=== PATIENT | male | born 1985 | race African-American/Black ===

== ENCOUNTER 2016-10-21 08:44 | Emergency (ER) | payer BC, MEDICAID, OTHER ==
[2016-10-21] MEDS ORDERED: ONDANSETRON 4 MG/2 ML VIAL IVP STA (08:55)
[2016-10-21] MEDS ORDERED: SODIUM CHLORIDE 0.9% 1,000 ML IV ONE (09:07)
[2016-10-21] MEDS ORDERED: ONDANSETRON 4 MG/2 ML VIAL ONE (09:13)
== END 2016-10-21 10:22 | disposition home or self-care (01) ==
DX: R11.2 Nausea with vomiting, unspecified (principal); R19.7 Diarrhea, unspecified; R42 Dizziness and giddiness

== ENCOUNTER 2017-07-10 00:13 | Emergency (ER) | payer SELFPAY ==
--- NOTE | 2017-07-10 00:47 | ED Physician Documentation ---
PD HPI SKIN - Stated complaint Stated Complaint: STOMACH WOUND - Chief complaint Chief Complaint: General - History obtained from History obtained from: Patient - History of Present Illness Timing - onset: How many weeks ago (several weeks-months of recurrent infection/ inflammation in the area (suprapubic), but he presents tonight due to concern of "opening" of the skin x past several days) Timing - details: Gradual onset Pain level now: 1 Location: Other (suprapubic) Recently seen: Not recently seen - Additional information Additional information: patient says he frequently gets ingrown hairs in suprapubic region, but is concerned regarding an opening in the skin in that area x several days. denies pain or fevers Review of Systems Constitutional: denies: Fever Skin: reports: Rash PD PAST MEDICAL HISTORY - Past Medical History Past Medical History: No Cardiovascular: None Respiratory: None Neuro: None Endocrine/Autoimmune: None GI: None : None HEENT: None Psych: None Musculoskeletal: None Derm: None - Past Surgical History Past Surgical History: No - Present Medications Home Medications: Ambulatory Orders Medication Instructions Recorded Confirmed Ondansetron Odt [Zofran] 4 mg TL Q6H PRN #10 tablet 10/21/16 Cephalexin [Keflex] 500 mg PO QID #27 capsule 07/10/17 - Allergies Allergies/Adverse Reactions: Allergies Allergy/AdvReac Type Severity Reaction Status Date / Time No Known Drug Allergies Allergy Verified 07/10/17 00:28 - Social History Does the pt smoke?: No Smoking Status: Never smoker Does the pt drink ETOH?: No Does the pt have substance abuse?: No - Immunizations Immunizations are current?: Yes - POLST Patient has POLST: No PD ED PE NORMAL - Vitals Vital signs reviewed: Yes - General General: Alert and oriented X 3, No acute distress PD ED PE EXPANDED - Abdomen Abdomen Visual: 1 - deformity (there is a defect in the skin, ulceration that is 5mm x 3-4 mm. no purluence, no discharge. there is no erythema although the surrounding skin is hyperpigmented and thick s/o scarring) Results - Vitals Vitals: Vital Signs - 24 hr 07/10/17 07/10/17 00:26 01:25 Temperature 36.4 C L 36.5 C Heart Rate 89 100 Respiratory 17 22 Rate Blood Pressure 153/101 H 138/76 H O2 Saturation 95 98 Oxygen O2 Source Room air PD MEDICAL DECISION MAKING - ED course Complexity details: considered differential, d/w patient Departure - Departure Disposition: 01 Home, Self Care Clinical Impression: Cellulitis Condition: Good Instructions: ED Infec Skin Cellulitis Follow-Up: [facility] [Provider Group] [facility] [Provider Group] Prescriptions: Cephalexin [Keflex] 500 mg PO QID #27 capsule Discharge Date/Time: 07/10/17 01:25
[2017-07-10] MEDS ORDERED: BACITRACIN OINT TOP STA (00:58)
[2017-07-10] MEDS ORDERED: cephALEXin 250 MG CAPSULE PO STA (01:07)
[2017-07-10] MEDS ORDERED: BACITRACIN OINT TOP ONE ×2 (01:13→01:24)
[2017-07-10] MEDS ORDERED: cephALEXin 250 MG CAPSULE PO ONE (01:23)
[2017-07-10 01:28] VITALS: BP 138/76
== END 2017-07-10 01:25 | disposition home or self-care (01) ==
LOC: ED 00:13
DX: L03.314 Cellulitis of groin (principal)
CPT/HCPCS: 99283; A9270

== ENCOUNTER 2017-10-01 22:54 | Outpatient (CLI) | payer MEDICAID | END 2017-10-01 22:55 | disposition critical access hospital (66) | LOC: EMS 22:54 | PROVIDERS: ATTEND Surgery | DX: R07.9 Chest pain, unspecified (principal) | CPT/HCPCS: A0425; A0429 ==

== ENCOUNTER 2017-10-01 23:12 | Emergency (ER) | payer MEDICAID ==
[2017-10-01 23:55] LABS: BASOPHILS % (AUTO) 0.6 %; EOSINOPHILS # (AUTO) 0.2 10^3/uL (0.0-0.7); EOSINOPHILS % (AUTO) 2.6 %; HGB - HEMOGLOBIN 13.4 g/dL (14.0-18.0); LYMPHOCYTES # (AUTO) 1.5 10^3/uL (1.5-3.5); LYMPHOCYTES % (AUTO) 18.9 %; MEAN CORPUSCULAR HEMOGLOBIN 26.8 pg (27.0-31.0); MEAN CORPUSCULAR HGB CONC 32.9 g/dL (32.0-36.0); MEAN CORPUSCULAR VOLUME 81.3 fL (80.0-94.0); MEAN PLATELET VOLUME 7.7 fL (7.4-11.4); MONOCYTES # (AUTO) 0.6 10^3/uL (0.0-1.0); MONOCYTES % (AUTO) 7.3 %; NEUTROPHILS # (AUTO) 5.7 10^3/uL (1.5-6.6); NEUTROPHILS % (AUTO) 70.6 %; PLT - PLATELET COUNT 242 10^3/uL (130-450); RED CELL DISTRIBUTION WIDTH 15.7 % (12.0-15.0)
[2017-10-02 00:02] LABS: ALBUMIN 3.3 g/dL (3.2-5.5); ALBUMIN/GLOBULIN RATIO 0.8 (1.0-2.2); BILIRUBIN,TOTAL 0.4 mg/dL (0.2-1.0); CALCIUM 8.9 mg/dL (8.5-10.3); CREATININE 1.1 mg/dL (0.6-1.2); TOTAL PROTEIN 7.2 g/dL (6.7-8.2)
--- NOTE | 2017-10-02 00:33 | ED Physician Documentation ---
PD HPI CHEST PAIN - Stated complaint Stated Complaint: CHEST PAIN - Chief complaint Chief Complaint: Cardiac - History obtained from History obtained from: Patient - History of Present Illness Timing - onset: How many days ago (3) Timing - onset during: Rest Timing - details: Now resolved, Intermittant, Waxing and waning Quality: Aching Location: Right chest Radiation: Back Improved by: Nothing Associated symptoms: Nausea. No: Shortness of air, Diaphoresis, Vomiting, General Weakness Similar symptoms before: No diagnosis Recently seen: Not recently seen - Additional information Additional information: Patient is a 31 year old obese male who is presenting to the emergency department for intermittent right sided chest pain. Patient states that it has been going on the last few days but decided tonight he should get checked out. patient denies any aggravating or alleviating factors. patient denies any early family history of cardiac disease or a history of blood clots. Review of Systems Constitutional: denies: Fever, Chills Eyes: reports: Reviewed and negative Ears: reports: Reviewed and negative Nose: reports: Reviewed and negative Throat: reports: Reviewed and negative Cardiac: reports: Chest pain / pressure. denies: Palpitations, Calf pain Respiratory: denies: Dyspnea, Cough, Wheezing GI: reports: Nausea. denies: Abdominal Pain, Vomiting, Constipation, Diarrhea : reports: Reviewed and negative Skin: reports: Reviewed and negative Musculoskeletal: reports: Back pain. denies: Extremity pain Neurologic: denies: Generalized weakness, Focal weakness, Altered mental status , Headache Psychiatric: reports: Reviewed and negative Immunocompromised: denies: Immunocompromised PD PAST MEDICAL HISTORY - Past Medical History Cardiovascular: None Respiratory: None Neuro: None Endocrine/Autoimmune: None GI: None : None HEENT: None Psych: None Musculoskeletal: None Derm: None - Past Surgical History Past Surgical History: No - Present Medications Home Medications: Ambulatory Orders Medication Instructions Recorded Confirmed No Known Home Medications [No 10/01/17 10/01/17 Known Home Medications] - Allergies Allergies/Adverse Reactions: Allergies Allergy/AdvReac Type Severity Reaction Status Date / Time No Known Drug Allergies Allergy Verified 10/01/17 23:17 - Social History Does the pt smoke?: No Smoking Status: Never smoker Does the pt drink ETOH?: No Does the pt have substance abuse?: No - Immunizations Immunizations are current?: Yes - POLST Patient has POLST: No PD ED PE NORMAL - Vitals Vital signs reviewed: Yes - General General: Alert and oriented X 3, No acute distress - HEENT HEENT: Atraumatic, PERRL, Moist mucous membranes - Neck Neck: Supple, no meningeal sign, No JVD - Cardiac Cardiac: RRR, No murmur - Respiratory Respiratory: No respiratory distress - Abdomen Abdomen: Soft - Derm Derm: Normal color, Warm and dry, No rash - Extremities Extremities: No deformity, No edema, No calf tenderness / cord - Neuro Neuro: Normal speech PD ED PE EXPANDED - Abdomen Abdomen: Other (obese). No: Tender to palpation, Rebound, Guarding Results - Vitals Vitals: Vital Signs - 24 hr 10/01/17 10/01/17 10/02/17 23:14 23:19 00:22 Temperature 36.6 C Heart Rate 86 70 Respiratory 18 12 Rate Blood Pressure 160/107 H 136/100 H Blood Pressure 160/107 H [Left] O2 Saturation 96 97 Oxygen O2 Source Room air - EKG (time done) 2318 Rate: Rate (enter#) (86) Rhythm: NSR [place]: Normal Intervals: Normal [place] QRS: Normal Ischemia: Normal ST segments Compare to prior EKG: Old EKG unavailable - Labs Labs: Laboratory Tests 10/01/17 10/01/17 10/01/17 23:40 23:40 23:40 WBC 8.0 RBC 5.00 Hgb 13.4 L Hct 40.7 L MCV 81.3 MCH 26.8 L MCHC 32.9 RDW 15.7 H Plt Count 242 MPV 7.7 Neut # 5.7 Lymph # 1.5 [place] # 0.6 Eos # 0.2 Baso # 0.0 Absolute Nucleated RBC 0.00 Nucleated RBC % 0.0 Sodium 137 Potassium 3.9 Chloride 103 Carbon Dioxide 23 Anion Gap 11.0 BUN 15 Creatinine 1.1 Estimated GFR (MDRD) 96 Glucose 103 H Calcium 8.9 Total Bilirubin 0.4 AST 31 ALT 40 Alkaline Phosphatase 63 Troponin I < 0.04 Total Protein 7.2 Albumin 3.3 Globulin 3.9 Albumin/Globulin Ratio 0.8 L Lipase 27 - Rads (name of study) chest x-ray Radiology: Final report received (normal) abd ultrasound Radiology: Final report received (fatty liver) PD MEDICAL DECISION MAKING - ED course Complexity details: reviewed old records, reviewed results, re-evaluated patient , considered differential, d/w patient ED course: Patient was seen and examined at bedside. ekg was performed and was within normal limits. labs were drawn and chest x-ray was performed which also showed no acute abnormalities. abdominal ultrasound was performed and showed only fatty liver. patient had a heart score of 1 and was stable for discharge with outpatient follow up. Departure - Departure Disposition: 01 Home, Self Care Clinical Impression: Atypical chest pain Condition: Good Instructions: ED Chest Pain NonCardiac Follow-Up: primary,care provider [Other] - As Needed Comments: Your diagnostics today showed no acute abnormalities. You chest pain is unlikely cardiac in nature. Your ultrasound did show a fatty liver so it is important that you work on changing your diet and exercising. You can take motrin or tylenol as needed for pain and follow up with your doctor for routine care. You may return to the emergency department at any time if necessary for new, worsening or uncontrollable symptoms.
--- NOTE | 2017-10-02 00:37 | XRAY Report ---
EXAM: CHEST RADIOGRAPHY EXAM DATE: 10/02/2017 12:08 AM. CLINICAL HISTORY: Right sided chest pain. COMPARISON: 10/21/2016. TECHNIQUE: 2 views. FINDINGS: Lungs/Pleura: No focal opacities evident. No pleural effusion. No pneumothorax. Normal volumes. Mediastinum: Heart and mediastinal contours are unremarkable. Other: None. IMPRESSION: Normal 2-view chest radiography. [facility] Referring Provider Line: [phone] SITE ID: [id number]
--- NOTE | 2017-10-02 01:03 | Ultrasound Preliminary Report ---
Exam: US ABDOMEN LIMITED IMPRESSION: 1. Fatty liver. 2. No evidence of cholelithiasis, cholecystitis or bile duct obstruction. [facility] SITE ID: [id number]
--- NOTE | 2017-10-02 01:04 | Ultrasound Report ---
EXAM: ABDOMEN ULTRASOUND LIMITED, RUQ EXAM DATE: 10/02/2017 12:53 AM. CLINICAL HISTORY: Right sided chest pain. COMPARISON: None. TECHNIQUE: Real-time scanning was performed with static images obtained. FINDINGS: Liver: Diffusely hyperechoic echotexture with no focal liver lesions. 18.5 cm. Main portal vein flow: Hepatopetal. Gallbladder: Contracted. No obvious gallstones, gallbladder wall thickening or pericholecystic fluid collections. Biliary System: CBD measures 5 mm. No intrahepatic or extrahepatic ductal dilatation. Other: No right hydronephrosis. The pancreas is nonvisualized. IMPRESSION: 1. Fatty liver. 2. No evidence of cholelithiasis, cholecystitis or bile duct obstruction. [facility] Referring Provider Line: [phone] SITE ID: [id number]
[2017-10-02 01:23] VITALS: BP 144/111
== END 2017-10-02 01:21 | disposition home or self-care (01) ==
LOC: EDUNIT# → ED 23:12
DX: R07.89 Other chest pain (principal); K76.0 Fatty (change of) liver, not elsewhere classified
CPT/HCPCS: 36415; 71046; 76705; 80053; 83690; 84484; 85025; 93005; 99283; 99284

== ENCOUNTER 2018-05-06 13:39 | Outpatient (CLI) | payer BC, MEDICAID ==
[2018-05-09 17:42] LABS: HIV AG/AB 4TH GEN NON-REACTIVE (NON-REACTIVE)
[2018-05-09 19:51] LABS: HEPATITIS C ANTIBODY NON-REACTIVE (NON-REACTIVE)
== END 2018-05-06 13:40 | disposition home or self-care (01) ==
LOC: LAB.N 13:39
PROVIDERS: ATTEND Physician Assistant Medical
DX: Z11.3 Encounter for screening for infections with a predominantly sexual mode of transmission (principal)
CPT/HCPCS: 36415; 81599; 86592; 86803; 87389; 87491; 87591

== ENCOUNTER 2020-02-27 08:54 | Emergency (ER) | payer MEDICAID ==
[2020-02-27 09:02] VITALS: BP 124/85
--- NOTE | 2020-02-27 09:35 | ED Physician Documentation ---
History of Present Illness - Stated complaint Stated Complaint: RETURN TO WORK NOTE - Chief complaint Chief Complaint: General - History obtained from History obtained from: Patient - History of Present Illness Timing: Today - Additonal information Additional information: 34-year-old male developed diarrhea yesterday morning for about 2 hours and had to call off work. He did go home he got some Pepto-Bismol and this resolved his symptoms. He states that he was asked to get a note to return to work. He states he is no longer feeling ill in any way he has not had fever chills fatigue cough or vomiting. His diarrhea is resolved. Review of Systems Constitutional: denies: Fever, Chills Eyes: denies: Loss of vision, Decreased vision Ears: denies: Ear pain Nose: denies: Rhinorrhea / runny nose, Congestion Throat: denies: Sore throat Cardiac: denies: Chest pain / pressure, Palpitations Respiratory: denies: Dyspnea, Cough GI: reports: Diarrhea (Resolved). denies: Abdominal Pain, Nausea, Vomiting : denies: Dysuria, Frequency Skin: denies: Rash Musculoskeletal: denies: Neck pain, Back pain, Extremity pain Neurologic: denies: Generalized weakness, Focal weakness, Numbness PD PAST MEDICAL HISTORY - Past Medical History Past Medical History: No Cardiovascular: None Respiratory: None Endocrine/Autoimmune: None GI: None : None HEENT: None Psych: None Musculoskeletal: None Derm: None - Past Surgical History Past Surgical History: No - Present Medications Home Medications: Ambulatory Orders Medication Instructions Recorded Confirmed No Known Home Medications 10/01/17 02/27/20 - Allergies Allergies/Adverse Reactions: Allergies Allergy/AdvReac Type Severity Reaction Status Date / Time No Known Drug Allergies Allergy Verified 02/27/20 08:58 - Social History Does the pt smoke?: No Smoking Status: Never smoker Does the pt drink ETOH?: No Does the pt have substance abuse?: No - Immunizations Immunizations are current?: Yes - POLST Patient has POLST: No PD ED PE NORMAL - Vitals Vital signs reviewed: Yes (Hypertensive mild) - General General: Alert and oriented X 3, No acute distress, Well developed/nourished - HEENT HEENT: Atraumatic, PERRL - Neck Neck: Supple, no meningeal sign, No bony TTP - Cardiac Cardiac: RRR, No murmur - Respiratory Respiratory: No respiratory distress, Clear bilaterally - Abdomen Abdomen: Soft, Non tender, Non distended, No organomegaly - Back Back: No CVA TTP, No spinal TTP - Derm Derm: Normal color, Warm and dry, No rash - Extremities Extremities: No deformity, No edema, No calf tenderness / cord - Neuro Neuro: Alert and oriented X 3, control system manager 2-12 intact, No motor deficit, No sensory deficit, Normal speech Eye Opening: Spontaneous Motor: Obeys Commands Verbal: Oriented GCS Score: 15 - Psych Psych: Normal mood, Normal affect Results - Vitals Vitals: Vital Signs - 24 hr 02/27/20 08:59 Temperature 36.1 C L Heart Rate 78 Respiratory 18 Rate Blood Pressure 124/85 H O2 Saturation 96 Oxygen O2 Source Room air PD MEDICAL DECISION MAKING - ED course Complexity details: reviewed results, considered differential, d/w patient ED course: 34-year-old male appears well today requires a note to return to work. Departure - Departure Disposition: 01 Home, Self Care Clinical Impression: Well adult health check Condition: Stable Instructions: ED Diet Vomiting Diarrhea Follow-Up: KAI ESQUIVEL MD [Primary Care Provider] - Forms: Activity restrictions
== END 2020-02-27 09:42 | disposition home or self-care (01) ==
LOC: ED 08:54
DX: R19.7 Diarrhea, unspecified (principal)
CPT/HCPCS: 99281; 99282

== ENCOUNTER 2020-07-24 08:00 | Outpatient (CLI) | payer MEDICAID | END 2020-07-24 23:59 | LOC: LAB.R 08:00 | PROVIDERS: ATTEND Family Medicine | DX: R11.10 Vomiting, unspecified (principal); Z20.828 Contact with and (suspected) exposure to other viral communicable diseases ==

== ENCOUNTER 2021-06-29 09:30 | Observation (INO) | payer MEDICAID ==
--- NOTE | 2021-06-29 09:59 | ED Physician Documentation ---
PD HPI SYNCOPE - Stated complaint Stated Complaint: LOSS OF CONSCIOUSNESS - Chief complaint Chief Complaint: Neuro - History obtained from History obtained from: Patient - History of Present Illness Timing - onset: Today Duration: Unknown Preceding symptoms: None Associated symptoms: None. No: Seizure, Incontinant of urine, Incontinant of stool, Headache, Vision changes, Chest pain, Palpitations, Diaphoresis, Dyspnea, Nausea / vomiting, Abdominal pain Contributing factors: None. No: Recent med change, Decreased PO intake, Noxious stimulae, Emotional upset, Just stood up, Exertion Injury occurred: Fell. No: Head injury, Neck injury, Bit tongue Pain level max: 0 Pain level now: 0 Similar symptoms before: Has not had sx before Recently seen: Not recently seen - Additional information Additional information: Patient is a 35-year-old male who presents to the emergency department with syncope today. He states that a similar event occurred yesterday. He states he does not know what happened. He was in his kitchen today and woke up on the floor. Does not remember feeling lightheaded, dizzy, palpitations. He states yesterday he woke up on the floor in his living room. He has not on any medications. Does not smoke or drink. No drug use. Unknown if there is a family history of syncope. No headache. No loss of bowel or bladder control. No tongue biting. PD PAST MEDICAL HISTORY - Past Medical History Cardiovascular: None Respiratory: None Endocrine/Autoimmune: None GI: None : None HEENT: None Psych: None Musculoskeletal: None Derm: None - Past Surgical History Past Surgical History: No - Present Medications Home Medications: Ambulatory Orders Medication Instructions Recorded Confirmed No Known Home Medications 10/01/17 06/29/21 - Allergies Allergies/Adverse Reactions: Allergies Allergy/AdvReac Type Severity Reaction Status Date / Time No Known Drug Allergies Allergy Verified 06/29/21 09:47 - Social History Does the pt smoke?: No Smoking Status: Never smoker Does the pt drink ETOH?: No Does the pt have substance abuse?: No - Immunizations Immunizations are current?: Yes - POLST Patient has POLST: No PD ED PE NORMAL - Vitals Vital signs reviewed: Yes - General General: Alert and oriented X 3, No acute distress, Well developed/nourished - HEENT HEENT: PERRL, Moist mucous membranes - Neck Neck: Supple, no meningeal sign - Cardiac Cardiac: RRR, No murmur, Strong equal pulses - Respiratory Respiratory: No respiratory distress, Clear bilaterally - Abdomen Abdomen: Soft, Non tender, Non distended - Derm Derm: Warm and dry, No rash - Extremities Extremities: No edema, No calf tenderness / cord - Neuro Neuro: Alert and oriented X 3 - Psych Psych: Normal mood, Normal affect Results - Vitals Vitals: Vital Signs - 24 hr 06/29/21 06/29/21 06/29/21 09:42 09:50 09:59 Temperature 36.8 C 36.6 C Heart Rate 71 78 Heart Rate [ 75 Sitting] Heart Rate [ 89 Standing] Heart Rate [ 74 Supine] Respiratory 15 17 Rate Blood Pressure 124/89 H 124/89 H Blood Pressure 136/90 H [Sitting] Blood Pressure 138/99 H [Standing] Blood Pressure 124/89 H [Supine] O2 Saturation 98 97 06/29/21 10:53 Temperature Heart Rate 68 Heart Rate [ Sitting] Heart Rate [ Standing] Heart Rate [ Supine] Respiratory 15 Rate Blood Pressure 129/92 H Blood Pressure [Sitting] Blood Pressure [Standing] Blood Pressure [Supine] O2 Saturation 98 Oxygen O2 Source Room air - EKG (time done) 1013 Rate: Rate (enter#) (80) Rhythm: NSR [place]: Normal Intervals: Normal [place] QRS: Normal Ischemia: Normal ST segments - Labs Labs: Laboratory Tests 06/29/21 06/29/21 06/29/21 10:05 10:05 10:05 WBC 5.7 RBC 5.82 Hgb 15.3 Hct 48.1 MCV 82.6 MCH 26.3 L MCHC 31.8 L RDW 15.8 H Plt Count 287 MPV 9.1 Neut # (Auto) 3.8 Lymph # (Auto) 1.3 L [place] # (Auto) 0.4 Eos # (Auto) 0.2 Baso # (Auto) 0.0 Absolute Nucleated RBC 0.00 Nucleated RBC % 0.0 Sodium 138 Potassium 3.9 Chloride 101 Carbon Dioxide 28 Anion Gap 9.0 BUN 13 Creatinine 1.0 Estimated GFR (MDRD) 104 Glucose 90 Calcium 9.2 Total Bilirubin 0.4 AST 21 ALT 20 Alkaline Phosphatase 62 Troponin I High Sens 2.9 Total Protein 8.1 Albumin 4.2 Globulin 3.9 Albumin/Globulin Ratio 1.1 Lipase 34 - Rads (name of study) cxr Radiology: Final report received, EMP read contemporaneously, See rad report (no acute disease) PD MEDICAL DECISION MAKING - ED course Complexity details: reviewed results, re-evaluated patient, considered differential, d/w patient, d/w bi consultant ED course: 35-year-old male with 2 episodes of syncope in the past 36 hours. Neither had a prodrome. Did not have any reported postictal period. No headache. No injuries. No chest pain. No palpitations. Patient is not orthostatic. No acute findings on EKG. Concern for potential arrhythmia or structural heart disease. Discussed the case with Dr. Cam, hospitalist who will place the patient in observation for further care. This document was made in part using voice recognition software. While efforts are made to proofread this document, sound alike and grammatical errors may occur. Departure - Departure Disposition: ED Place in Observation Clinical Impression: Syncope Qualifiers: Syncope type: unspecified Qualified Code(s): R55 - Syncope and collapse Condition: Stable Discharge Date/Time: 06/29/21 11:57
[2021-06-29 10:09] LABS: BASOPHILS % (AUTO) 0.5 %; EOSINOPHILS # (AUTO) 0.2 10^3/uL (0.0-0.7); HCT - HEMATOCRIT 48.1 % (42.0-52.0); HGB - HEMOGLOBIN 15.3 g/dL (14.0-18.0); LYMPHOCYTES # (AUTO) 1.3 10^3/uL (1.5-3.5); LYMPHOCYTES % (AUTO) 22.2 %; MEAN CORPUSCULAR HEMOGLOBIN 26.3 pg (27.0-31.0); MEAN CORPUSCULAR HGB CONC 31.8 g/dL (32.0-36.0); MEAN CORPUSCULAR VOLUME 82.6 fL (80.0-94.0); MEAN PLATELET VOLUME 9.1 fL (7.4-11.4); MONOCYTES # (AUTO) 0.4 10^3/uL (0.0-1.0); MONOCYTES % (AUTO) 6.3 %; NEUTROPHILS # (AUTO) 3.8 10^3/uL (1.5-6.6); NEUTROPHILS % (AUTO) 67.8 %; PLT - PLATELET COUNT 287 10^3/uL (130-450); RED BLOOD COUNT 5.82 10^6/uL (4.70-6.10); RED CELL DISTRIBUTION WIDTH 15.8 % (12.0-15.0); WHITE BLOOD COUNT 5.7 x10^3/uL (4.8-10.8)
[2021-06-29 10:25] LABS: ALBUMIN 4.2 g/dL (3.2-5.5); ALBUMIN/GLOBULIN RATIO 1.1 (1.0-2.2); BILIRUBIN,TOTAL 0.4 mg/dL (0.2-1.0); CALCIUM 9.2 mg/dL (8.5-10.3); POTASSIUM 3.9 mmol/L (3.5-5.0); TOTAL PROTEIN 8.1 g/dL (6.7-8.2)
--- NOTE | 2021-06-29 10:28 | XRAY Report ---
PROCEDURE: Chest 1 View X-Ray INDICATIONS: Chest Pain TECHNIQUE: One view of the chest was acquired. COMPARISON: None available at time of dictation. FINDINGS: Overlying EKG wires. Surgical changes and devices: None. Lungs and pleura: No pleural effusions or pneumothorax. Lungs are clear. Mediastinum: Mediastinal contours appear normal. Heart size is normal. Bones and chest wall: No suspicious bony lesions. Overlying soft tissues appear unremarkable. IMPRESSION: No evidence of an acute cardiopulmonary abnormality. Reviewed by: Mukul Parker DO on 06/29/2021 9:27 AM [facility] Approved by: Mukul Parker DO on 06/29/2021 9:27 AM [facility] Station ID: [id number]
[2021-06-29 11:51] LABS: MUDS CUTOFF CONCENTRATIONS CUTOFF CONC BELOW:
[2021-06-29 12:03] LABS: AMPHETAMINE SCREEN,URINE NEGATIVE (NEGATIVE); BARBITURATE SCREEN,UR NEGATIVE (NEGATIVE); BENZODIAZEPINES SCREEN, URINE NEGATIVE (NEGATIVE); COCAINE SCREEN URINE NEGATIVE (NEGATIVE); METHADONE SCREEN, URINE NEGATIVE (NEGATIVE); METHAMPHETAMINES SCREEN, URINE NEGATIVE (NEGATIVE); OPIATE SCREEN, URINE NEGATIVE (NEGATIVE); OXYCODONE SCREEN, URINE NEGATIVE (NEGATIVE); PROPOXYPHENE SCREEN, URINE NEGATIVE (NEGATIVE); THC CANNABINOID SCREEN, URINE NEGATIVE (NEGATIVE); TRICYCLIC ANTIDEPRESSANT,URINE NEGATIVE (NEGATIVE)
[2021-06-29 12:54] LABS: B. PARAPERTUSSIS- RESP PCR PAN NOT DETECTED; B. PERTUSSIS- RESP PCR PANEL NOT DETECTED; C. PNEUMONIAE- RESP PCR PANEL NOT DETECTED; CORONAVIRUS 229E-RESP PCR NOT DETECTED; CORONAVIRUS HKU1-RESP PCR NOT DETECTED; CORONAVIRUS NL63-RESP PCR NOT DETECTED; CORONAVIRUS OC43-RESP PCR NOT DETECTED; HUMAN METAPNEUMOVIRUS NOT DETECTED; INFLUENZA A- RESP PCR PANEL NOT DETECTED; INFLUENZA B - RESP PCR PANEL NOT DETECTED; M. PNEUMONIAE- RESP PCR PANEL NOT DETECTED; PARAINFLUENZA VIRUS 1 NOT DETECTED; PARAINFLUENZA VIRUS 2 NOT DETECTED; PARAINFLUENZA VIRUS 3 NOT DETECTED; PARAINFLUENZA VIRUS 4 NOT DETECTED; RHINOVIRUS/ENTEROVIRUS NOT DETECTED; RSV- RESP PCR PANEL NOT DETECTED; SARS-CoV-2 -RESP PCR PANEL NOT DETECTED
--- NOTE | 2021-06-29 13:57 | PHARMACY PROGRESS NOTE ---
- Best Possible Medication History Admit Date and Time: 06/29/21 1108 Processed by: Nursing Medication History completed: Yes Patient Interview: Completed As the person ultimately responsible for medication therapy, providers are able to order a medication from an existing home medication list in [facility] via the "Reconcile Routine" prior to Confirmation of that medication by desktop support engineer. Such practice is discouraged except when the physician, in their clinical judg ment, deems that a medical need exists for a medication without regard to previous use.
[2021-06-29] MEDS ORDERED: ACETAMINOPHEN 325 MG TABLET PO PRN (14:01)
[2021-06-29] MEDS ORDERED: SODIUM CHLORIDE FLUSH 0.9% 10 ML SYRINGE IVP PRN (14:01)
--- NOTE | 2021-06-29 14:19 | HISTORY & PHYSICAL EXAMINATION ---
Chief Complaint - Chief Complaint Chief Complaint: fainted, found on floor by friend History of Present Illness - Admitted From Admitted From:: ED - History Obtained From History obtained from: ED provider and the patient - History of Present Illness HPI Comment/Other: This is a 35-year-old black male with a history of morbid obesity (he weighed 380 pounds as a teenager, his lowest weight has been 330 lbs and he is now at about 350 pounds). He otherwise has no significant past medical history and takes no daily medications. He was seen in this ER 5 years ago for a syncopal episode that occurred when he had a viral URI and had been standing at work. Patient presented to the emergency room driven here by his friend. This morning the patient awoke and was making himself breakfast in the kitchen and then without a prodrome, he was found on the floor by his friend who he had just called, being shaken by the friend to awaken him. He did not have noticeable trauma, no incontinence of urine or stool, no tongue biting, had no complaints of headache, lightheadedness or chest pain. He was able to stand up then and walk to the friend's car, who drove him to the ED. He had syncope just the day before also, which occurred after he had done exercise, his usual push-ups in his house, and then had taken a shower. He was dressed and once again had no warning, but found himself on the floor in his living room, thought that he may have "fallen asleep after doing his push-ups, which has happened in the past", but then he recalled that he had done those push-ups before the shower. Both events were unwitnessed. He denies a history of exercise intolerance (being excused from gym) as a child and denies heart murmur history. There is no family history of early heart disease, syncope, needing a pacemaker or having seizures. He believes that he is hydrating himself normally, has not had any new prescription medications, no recent travel, no fever or GI or res piratory symptoms. He is going through stressful several months because he is from his since February of this year. She has a restraining order not to come near him. They share care of their 3 children who are 11, 5 and 4 years old. 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 As I am finishing the visit for the H&P, the patient described chest pain in the left anterior chest with radiation slightly to the right. He rated it 1/10. It was not pleuritic. There was no other radiation of the pain. Vital signs were taken during the event which lasted about 5 to 10 minutes and resolved spontaneously. Blood pressure was 127/70, heart rate 76, saturation 97%. He said it did not feel like reflux and he has never felt this feeling before. EKG was done during the chest pain (see below). History - Past Medical History Cardiovascular: reports: None Respiratory: reports: None Neuro: reports: None Endocrine/Autoimmune: reports: None GI: reports: None : reports: None HEENT: reports: None Psych: reports: None Musculoskeletal: reports: None Derm: reports: None MRSA Hx?: No Other Past Medical History: Morbid obesity - Family & Social History Family History: Mother: Alive and Well, Father: Alive and Well, Sister: Alive and Well, Brother: Alive and Well Living arrangement: At home Living Situation: Alone Social History Notes: Patient lives alone since going through separation with his , since February 2021. He takes care of his children half the time, he has an 11-year-old girl, 5-year-old boy, 4-year-old girl. He does not smoke cigarettes and never smoked, he denies any illicit drug use, no marijuana use, he drinks no alcohol. He describes himself as "a loner who is nerdy", likes to read, play video games, workout at the gym and at home. - Substance History Use: Uses substance without health or social issues: NONE - POLST Patient has POLST: No Meds/Allgy - Home Medications Home Medications: Ambulatory Orders Medication Instructions Recorded Confirmed No Known Home Medications 10/01/17 06/29/21 - Allergies Allergies/Adverse Reactions: Allergies Allergy/AdvReac Type Severity Reaction Status Date / Time No Known Drug Allergies Allergy Verified 06/29/21 09:47 Review of Systems - All Other Systems All Other Systems: reports: Reviewed and negative Exam - Vital Signs Vital Signs: Vital Signs x48h Temp Pulse Pulse Pulse Pulse Pulse Resp 06/29/21 13:47 70 06/29/21 12:10 37.1 C 67 18 06/29/21 10:53 68 15 06/29/21 09:59 75 89 74 06/29/21 09:50 36.6 C 78 17 06/29/21 09:42 36.8 C 71 15 BP BP BP BP BP Pulse Ox 06/29/21 13:47 126/75 06/29/21 12:10 116/67 100 06/29/21 10:53 129/92 H 98 06/29/21 09:59 136/90 H 138/99 H 124/89 H 06/29/21 09:50 124/89 H 97 06/29/21 09:42 124/89 H 98 - Physical Exam General Appearance: positive: No acute distress, Alert Eyes Bilateral: positive: Normal inspection, EOMI ENT: positive: ENT inspection nml, No signs of dehydration Neck: positive: Nml inspection, Thyroid nml, No JVD Cardiovascular: positive: Regular rate & rhythm, No murmur (Distant heart sounds due to obesity) Abdomen: positive: Non-tender, Nml bowel sounds, No distention Skin: positive: Warm, Dry Extremities: positive: Non-tender, No pedal edema Neurologic/Psychiatric: positive: Oriented x3 (Non-focal) Conclusion/Plan - Problem List (1) Syncope Conclusion/Plan: Etiology is not immediately clear, since he cannot remember having a prodrome before having (presumed) syncope. This makes a sudden cardiac arrhythmia or a seizure possible. There are no stigmata of having seizure however like tongue biting or incontinence and no postictal period unless sleeping on the floor for an hour was postictal. Alternativly, he did have a waqrning of lightheadedness and simply cannot remember it now. He may have been overexerting himself with the push-ups and then after a hot shower was vasodilated and dehydrated, which led to the syncopal events. The blood tests however do not support dehydration and he is not orthostatic. Also, these may not be syncopal events but caused by drowsiness/narcolepsy. Will order orthostatic vital sign checks. Continue telemetry to evaluate for arrhythmias. Recheck troponin (see below). Obtain a complete Echo to evaluate for structural heart disease. He was told that if we do not find an obvious and reversible cause, he will need to have restriction from driving for several months and then outpatient evaluation by Neurology and Cardiology. (It was when I was describing these restrictions that he suddenly developed chest pain). Qualifiers: Syncope type: unspecified Qualified Code(s): R55 - Syncope and collapse (2) Chest pain Conclusion/Plan: There was an episode of chest pain at the end of my visit with him in the room, I suspected that he became nervous as I described the plan. Will recheck his troponin, the EKG was rechecked and has no change. Will continue telemetry. Planning to obtain an Echo as described above. Will check a fasting lipid panel. (3) Obesity (BMI 30-39.9) Conclusion/Plan: As per Hx. In the past when he weighed 380 pounds, and he lost weight by decreasing his portions, eliminating snacks and increasing his exercise. Will check for Hypothyroidism with a morning TSH. - Lab Results Fish Bones: 06/29/21 10:05 06/29/21 10:05 - Diagnostic Imaging Results Diagnostic Imaging Results: positive: Final report reviewed - EKG Results EKG Interpreted Independently: Yes EKG Comparison: Unchanged from prior EKG EKG Findings: This EKG was done during chest pain which he rated 1/10: Normal sinus rhythm, rate 72, inverted T wave in lead III and biphasic in lead aVF. Since the EKG done several hours previously, no significant change.
[2021-06-29] MEDS: SODIUM CHLORIDE FLUSH 0.9% 10 ML SYRINGE IVP SCH (17:41)
[2021-06-30] MEDS: SODIUM CHLORIDE FLUSH 0.9% 10 ML SYRINGE IVP SCH ×2 (02:39→07:57)
[2021-06-30 05:47] LABS: BASOPHILS % (AUTO) 0.6 %; EOSINOPHILS # (AUTO) 0.2 10^3/uL (0.0-0.7); EOSINOPHILS % (AUTO) 2.5 %; HCT - HEMATOCRIT 47.9 % (42.0-52.0); HGB - HEMOGLOBIN 15.3 g/dL (14.0-18.0); LYMPHOCYTES # (AUTO) 1.8 10^3/uL (1.5-3.5); LYMPHOCYTES % (AUTO) 26.8 %; MEAN CORPUSCULAR HEMOGLOBIN 26.4 pg (27.0-31.0); MEAN CORPUSCULAR HGB CONC 31.9 g/dL (32.0-36.0); MEAN CORPUSCULAR VOLUME 82.7 fL (80.0-94.0); MEAN PLATELET VOLUME 9.2 fL (7.4-11.4); MONOCYTES # (AUTO) 0.5 10^3/uL (0.0-1.0); MONOCYTES % (AUTO) 6.6 %; NEUTROPHILS # (AUTO) 4.3 10^3/uL (1.5-6.6); NEUTROPHILS % (AUTO) 63.4 %; PLT - PLATELET COUNT 268 10^3/uL (130-450); RED BLOOD COUNT 5.79 10^6/uL (4.70-6.10); RED CELL DISTRIBUTION WIDTH 15.9 % (12.0-15.0); WHITE BLOOD COUNT 6.8 x10^3/uL (4.8-10.8)
[2021-06-30 05:57] LABS: CALCIUM 9.2 mg/dL (8.5-10.3); POTASSIUM 3.9 mmol/L (3.5-5.0)
[2021-06-30 06:05] LABS: CHOL/HDL RATIO 4.4 (<5.0); CHOLESTEROL 189 mg/dL; HDL CHOLESTEROL 43 mg/dL; LDL CHOLESTEROL,CALCULATED 130 mg/dL; TRIGLYCERIDES 80 mg/dL; VLDL CHOLESTEROL 16 mg/dL
[2021-06-30 13:01] VITALS: BP 120/80
--- NOTE | 2021-06-30 13:42 | Discharge Plan ---
Discharge Plan Problem Reviewed?: Yes Disposition: Home, Self Care Condition: Stable Diet: Regular Activity Restrictions: Activity as Tolerated Shower Restrictions: No Driving Restrictions: Yes (No driving until cleared to resume by doctor) Health Concerns: You were in the hospital for evaluation of possible fainting; you reported 2 spells that were unwitnessed. Your blood pressure, blood tests, EKG, heart rhythm monitor and Echo were unremarkable, therefore we do not know what caused them. These may have been fainting spells, seizures or narcolepsy. You should not be driving a car or operating heavy machinery, therefore, until you are cleared to do so by a Provider. See Dr Esquivel at the Jul 02 appointment that was arranged for you. You need to be referred to see a Card Feeder and Neurologist for further testing. If you should have another such spell, call the office of Dr Esquivel to report it, and to be seen sooner or come to the ER. Plan of Treatment: As above. Care Goals: Improvement in symptoms and stabilization are the goals. Assessment: The patient understands and is agreeable with the plan. No Smoking: If you smoke, Please STOP! Call for help. Follow-up with: MARICARMEN ESQUIVEL MD [Physician No Access] -
--- NOTE | 2021-06-30 13:44 | DISCHARGE SUMMARY ---
Discharge Summary Admit Date: 06/29/21 Discharge Date: 06/30/21 Discharging Provider: Dr Dedra Cam Primary Care Provider: Dr Jonathan Esquivel Code Status: Attempt Resuscitation Condition at Discharge: Stable Discharge Disposition: 01 Home, Self Care - HPI History of Present Illness: This is a 35-year-old black male with a history of morbid obesity (he weighed 380 pounds as a teenager, his lowest weight has been 330 lbs and he is now at about 350 pounds). He otherwise has no significant past medical history and takes no daily medications. He was seen in this ER 5 years ago for a syncopal episode that occurred when he had a viral URI and had been standing at work. Patient presented to the emergency room driven here by his friend. This morning the patient awoke and was making himself breakfast in the kitchen and then without a prodrome, he was found on the floor by his friend who he had just called, being shaken by the friend to awaken him. He did not have noticeable trauma, no incontinence of urine or stool, no tongue biting, had no complaints of headache, lightheadedness or chest pain. He was able to stand up then and walk to the friend's car, who drove him to the ED. He had syncope just the day before also, which occurred after he had done exercise, his usual push-ups in his house, and then had taken a shower. He was dressed and once again had no warning, but found himself on the floor in his living room, thought that he may have "fallen asleep after doing his push-ups, which has happened in the past", but then he recalled that he had done those push-ups before the shower. Both events were unwitnessed. He denies a history of exercise intolerance (being excused from gym) as a child and denies heart murmur history. There is no family history of early heart disease, syncope, needing a pacemaker or having seizures. He believes that he is hydrating himself normally, has not had any new prescription medications, no recent travel, no fever or GI or respiratory symptoms. He is going through stressful several months because he is from his since February of this year. She has a restraining order not to come near him. They share care of their 3 children who are 11, 5 and 4 years old. 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 As I am finishing the visit for the H&P, the patient described chest pain in the left anterior chest with radiation slightly to the right. He rated it 1/10. It was not pleuritic. There was no other radiation of the pain. Vital signs were taken during the event which lasted about 5 to 10 minutes and resolved spontaneously. Blood pressure was 127/70, heart rate 76, saturation 97%. He said it did not feel like reflux and he has never felt this feeling before. EKG was done during the chest pain (see below). - HOSPITAL COURSE Hospital Course: 1) Unconsciousness All of his evaluations returned normal: Telemetry was unremarkable, Echo was within normal limits without IHSS, orthostatic vital signs were normal, labs were normal, troponins were normal, EKG was unremarkable. He needs further evaluation by Neurology and Cardiology and until then he was restricted from driving since he may lose consciousness behind the wheel of his car. Before discharge, we got him an appointment to see Dr. Esquivel on 07/02/2021 at 12:30 PM in order to proceed further with testing and referrals. 2) chest pain Serial troponins were unremarkable. His EKG was within normal limits. There was no further chest pain. His total cholesterol was < 200. Of note, this chest pressure occurred just as I was giving him recommendations for no further driving and reasons for that order. Perhaps he had an anxiety attack. 3) Obesity (BMI 30-39.9) As per Hx. - ALLERGIES Allergies/Adverse Reactions: Allergies Allergy/AdvReac Type Severity Reaction Status Date / Time No Known Drug Allergies Allergy Verified 06/29/21 09:47 - MEDICATIONS Home Medications: Ambulatory Orders Medication Instructions Recorded Confirmed No Known Home Medications 10/01/17 06/29/21 - PHYSICAL EXAM AT DISCHARGE General Appearance: positive: No acute distress, Alert Eyes Bilateral: positive: Normal inspection, EOMI ENT: positive: ENT inspection nml, No signs of dehydration Neck: positive: Nml inspection, No JVD Respiratory: positive: No respiratory distress, Breath sounds nml Cardiovascular: positive: Regular rate & rhythm, No murmur Abdomen: positive: Non-tender, Nml bowel sounds, Other (Obese) Skin: positive: Warm, Dry Extremities: positive: Non-tender, No pedal edema Neurologic/Psychiatric: positive: Oriented x3 (Non-focal.) - LABS Result Diagrams: 06/30/21 05:27 06/30/21 05:27 - DIAGNOSTIC IMAGING Diagnostic Imaging Results: Final report reviewed - FOLLOW UP Follow Up: See Dr Esquivel on 07/02/21 for new appointment. - TIME SPENT Time Spent in Discharge (Minutes): 30
== END 2021-06-30 13:57 | disposition home or self-care (01) ==
LOC: ED 09:30 → MS2 11:08
PROVIDERS: ADMIT Internal Medicine; ATTEND Internal Medicine
DX: R40.20 Unspecified coma (principal); R07.89 Other chest pain; E66.9 Obesity, unspecified; Z68.36 Body mass index [BMI] 36.0-36.9, adult; Z20.822 Contact with and (suspected) exposure to COVID-19
CPT/HCPCS: 0202U; 36415; 71045; 80048; 80053; 80061; 80306; 83690; 83735; 84443; 84484; 85025; 93005; 93306; 99283; 99285; G0378; 83721